=== PATIENT | male | born 1980 | race Caucasian/White ===

== ENCOUNTER → 2020-12-02 | Outpatient (CLI) | payer BC, OTHER ==
[~2020-12-02] MED LIST: LODINE CAP 300300 MG PO
== END ==
LOC: KOH-I 11:31
DX: R05 Cough (principal)
CPT/HCPCS: 71046

== ENCOUNTER 2021-04-02 21:02 | Emergency (ER) | payer BC, OTHER ==
[2021-04-02 23:16] LABS: RED BLOOD COUNT 5.12 M/UL (4.20-5.50); WHITE BLOOD COUNT 14.8 K/UL (4.5-11.0)
[2021-04-03] MEDS ORDERED: LODINE CAP 300300 MG PO (02:14)
== END 2021-04-03 02:35 | disposition home or self-care (01) ==
LOC: ER1 21:02
PROVIDERS: Physician Assistant
DX: J02.9 Acute pharyngitis, unspecified (principal); Z20.822 Contact with and (suspected) exposure to COVID-19
CPT/HCPCS: 0240U; 71045; 80053; 81001; 83605; 83735; 83880; 84100; 85025; 85610; 85652; 85730; 86140; 87040; 87081; 87086; 87880; 99283; J7030